=== PATIENT | male | born 1980 | race Caucasian/White ===

== ENCOUNTER 2018-05-14 20:23 | Emergency (ER) | payer MEDICAID ==
[~2018-05-14] VITALS: Ht 177.8 cm; Wt 88.6 kg
[~2018-05-14 20:23] MED LIST: NO HOME MEDS
[2018-05-14] MEDS ORDERED: LIDOcaine 1.5% w/epinephrine 1:200,000 5ml ampul IJ ONE (20:55)
[2018-05-14] MEDS ORDERED: CEPH500C5 PO (21:40)
[2018-05-14] MEDS ORDERED: sulfamethoxazole/trimethoprim DS (800/160mg) tablet PO ONE (21:40)
[2018-05-14] MEDS ORDERED: cephalexin 250mg capsule PO ONE (21:40)
[2018-05-14] MEDS ORDERED: BACDS PO (21:40)
[2018-05-14 22:08] VITALS: BP 120/85
== END 2018-05-14 22:09 | disposition home or self-care (01) ==
LOC: ER 20:24
DX: L03.115 Cellulitis of right lower limb (principal); L02.415 Cutaneous abscess of right lower limb; F17.210 Nicotine dependence, cigarettes, uncomplicated; Z56.0 Unemployment, unspecified
CPT/HCPCS: 10060; 99283; A6266; J3490

== ENCOUNTER 2018-08-27 20:56 | Emergency (ER) | payer MEDICAID ==
[~2018-08-27] VITALS: Ht 177.8 cm; Wt 90.9 kg
[~2018-08-27 20:56] MED LIST changes: +CEPH500C5 PO
[2018-08-27] MEDS ORDERED: SULF1TAB49 PO (21:50)
[2018-08-27] MEDS ORDERED: LIDOcaine 1% w/epiNEPHrine 1:200,000 30ml vial IM ONE (21:50)
[2018-08-27] MEDS ORDERED: acetaminophen 325mg tablet PO ONE (21:50)
[2018-08-27] MEDS ORDERED: IBUP-1984 PO (21:50)
[2018-08-27] MEDS ORDERED: ibuprofen tablet 400 MG TABLET PO ONE (21:50)
[2018-08-27] MEDS ORDERED: CEPH-572 PO (21:50)
[2018-08-27 23:44] VITALS: BP 133/84
== END 2018-08-27 23:45 | disposition home or self-care (01) ==
LOC: ER 20:57
DX: L02.415 Cutaneous abscess of right lower limb (principal); Z79.2 Long term (current) use of antibiotics; Z79.899 Other long term (current) drug therapy; Z56.0 Unemployment, unspecified
CPT/HCPCS: 10061; 99284; J3490

== ENCOUNTER 2018-12-21 06:21 | Emergency (ER) | payer MEDICAID ==
[~2018-12-21] VITALS: Ht 177.8 cm; Wt 90.0 kg
[2018-12-21 06:46] VITALS: BP 127/71
== END 2018-12-21 06:55 | disposition home or self-care (01) ==
LOC: ER 06:22
DX: L98.8 Other specified disorders of the skin and subcutaneous tissue (principal); F19.10 Other psychoactive substance abuse, uncomplicated; F15.90 Other stimulant use, unspecified, uncomplicated; F11.90 Opioid use, unspecified, uncomplicated; F17.200 Nicotine dependence, unspecified, uncomplicated; Z79.899 Other long term (current) drug therapy; Z56.0 Unemployment, unspecified
CPT/HCPCS: 99281

== ENCOUNTER 2019-05-28 00:40 | Emergency (ER) | payer MEDICAID, OTHER ==
[~2019-05-28] VITALS: Ht 177.8 cm; Wt 100.0 kg
[~2019-05-28 00:40] MED LIST changes: -CEPH500C5 PO
[2019-05-28 00:43] VITALS: BP 142/94
[2019-05-28] MEDS ORDERED: SULF1TAB49 PO (01:24)
== END 2019-05-28 01:37 | disposition home or self-care (01) ==
LOC: ER 00:41
DX: L03.116 Cellulitis of left lower limb (principal); L03.115 Cellulitis of right lower limb; L03.317 Cellulitis of buttock; F17.200 Nicotine dependence, unspecified, uncomplicated; F12.90 Cannabis use, unspecified, uncomplicated; F15.90 Other stimulant use, unspecified, uncomplicated; F10.99 Alcohol use, unspecified with unspecified alcohol-induced disorder; Z56.0 Unemployment, unspecified; Z86.14 Personal history of Methicillin resistant Staphylococcus aureus infection; Y90.9 Presence of alcohol in blood, level not specified
CPT/HCPCS: 99283

== ENCOUNTER 2019-09-26 01:56 | Emergency (ER) | payer SELFPAY ==
[~2019-09-26] VITALS: Ht 177.8 cm; Wt 95.5 kg
[2019-09-26] MEDS ORDERED: normal saline 1000ML IV soln IVB ONE ×2 (02:40)
[2019-09-26 03:24] LABS: BASOPHILS % (AUTO) 0.7 % (0-1); EOSINOPHILS # (AUTO) 0.1 X10'3 (0-0.9); EOSINOPHILS % (AUTO) 1.3 % (0-6); HEMATOCRIT 41.9 % (42.0-52.0); HEMOGLOBIN 14.6 g/dl (14.0-17.9); LYMPHOCYTES # (AUTO) 2.8 X10'3 (1.1-4.8); LYMPHOCYTES % (AUTO) 38.5 % (21-51); MEAN CORPUSCULAR HEMOGLOBIN 29.3 PG (27.0-31.0); MEAN CORPUSCULAR HGB CONC 34.7 g/dL (33.0-36.5); MEAN CORPUSCULAR VOLUME 84.2 FL (78-98); MEAN PLATELET VOLUME 8.1 FL (7.4-10.4); MONOCYTES # (AUTO) 0.6 X10'3 (0-0.9); MONOCYTES % (AUTO) 8.4 % (2-12); NEUTROPHILS # (AUTO) 3.7 X10'3 (1.8-7.7); NEUTROPHILS % (AUTO) 51.1 % (42-75); PLATELET COUNT 269 X10'3 (140-440); RED BLOOD COUNT 4.98 X10'6 (4.70-6.10); RED CELL DISTRIBUTION WIDTH 12.5 % (11.5-14.5); WHITE BLOOD COUNT 7.3 X10'3 (4.5-11.0)
[2019-09-26] MEDS ORDERED: ondansetron/PF 4mg/2ml inj IV ONE (03:25)
[2019-09-26 03:43] LABS: ALANINE AMINOTRANSFERASE 40 U/L (12-78); ALBUMIN 3.5 G/DL (3.4-5.0); ALBUMIN/GLOBULIN RATIO 0.9 (1.1-1.5); ALKALINE PHOSPHATASE 156 IU/L (46-116); ANION GAP 3 (8-16); BILIRUBIN,TOTAL 0.5 MG/DL (0.1-1.0); BLOOD UREA NITROGEN 14 MG/DL (7-18); BUN/CREATININE RATIO 12.3 (5.4-32.0); CHLORIDE 101 MMOL/L (99-107); CREATININE 1.14 MG/DL (0.60-1.10); SODIUM 134 MMOL/L (135-145); TOTAL CARBON DIOXIDE 29.6 MMOL/L (24-32); TOTAL PROTEIN 7.4 G/DL (6.4-8.2); eGFR 72 ML/MIN
[2019-09-26 03:44] LABS: ASPARTATE AMINO TRANSFERASE 26 U/L (10-37); POTASSIUM 5.1 MMOL/L (3.5-5.1)
[2019-09-26 03:48] LABS: GLUCOSE 500 MG/DL (70-104)
[2019-09-26] MEDS ORDERED: insulin regular, human U-100 3ml vial - multi-dose IV ONE (04:05)
[2019-09-26] MEDS ORDERED: insulin regular, human 10 units/0.1 ml syringe IV ONE (04:05)
[2019-09-26 04:31] VITALS: BP 130/93
== END 2019-09-26 04:32 | disposition home or self-care (01) ==
LOC: ER 01:56
DX: E11.65 Type 2 diabetes mellitus with hyperglycemia (principal); F12.90 Cannabis use, unspecified, uncomplicated; F15.90 Other stimulant use, unspecified, uncomplicated; F11.90 Opioid use, unspecified, uncomplicated; Z72.89 Other problems related to lifestyle; Z86.14 Personal history of Methicillin resistant Staphylococcus aureus infection; Z56.0 Unemployment, unspecified
CPT/HCPCS: 36415; 80053; 82948; 85025; 96361; 96374; 99283; J7030; J1815

== ENCOUNTER 2020-02-15 20:31 | Emergency (ER) | payer MEDICAID ==
[~2020-02-15] VITALS: Ht 177.8 cm; Wt 90.9 kg
[2020-02-15 20:32] VITALS: BP 128/83
[2020-02-15] MEDS ORDERED: normal saline 1000ML IV soln IVB ONE (21:05)
--- NOTE | 2020-02-15 21:35 | NUR ---
PT RELEASED FROM [facility] CUSTODY AND WANTING TO LEAVE AMA. SONNY FRANCIS AT FOR INITIAL EVAL
[2020-02-15] MEDS ORDERED: METF1000 PO (21:37)
== END 2020-02-15 21:55 | disposition left against medical advice (07) ==
LOC: ER 20:31
DX: E11.65 Type 2 diabetes mellitus with hyperglycemia (principal); R11.10 Vomiting, unspecified; R35.8 Other polyuria; R63.1 Polydipsia; F17.200 Nicotine dependence, unspecified, uncomplicated; F12.90 Cannabis use, unspecified, uncomplicated; F11.90 Opioid use, unspecified, uncomplicated; Z86.14 Personal history of Methicillin resistant Staphylococcus aureus infection; Z56.0 Unemployment, unspecified; Z79.899 Other long term (current) drug therapy
CPT/HCPCS: 82948; 99283

== ENCOUNTER 2020-11-08 01:42 | Emergency (ER) | payer MEDICAID ==
[~2020-11-08] VITALS: Ht 177.8 cm; Wt 80.2 kg
[2020-11-08 01:50] VITALS: BP 112/79
== END 2020-11-08 04:58 | disposition left against medical advice (07) ==
LOC: ER 01:43
DX: R10.31 Right lower quadrant pain (principal); Z53.21 Procedure and treatment not carried out due to patient leaving prior to being seen by health care provider

== ENCOUNTER 2022-06-12 22:28 | Emergency (ER) | payer MEDICAID ==
[~2022-06-12] VITALS: Ht 177.8 cm; Wt 86.4 kg
[2022-06-12 23:09] VITALS: BP 117/79
[2022-06-12 23:56] LABS: BASOPHILS # (AUTO) 0.1 X10'3 (0-0.2); BASOPHILS % (AUTO) 0.9 % (0-1); EOSINOPHILS # (AUTO) 0.1 X10'3 (0-0.9); EOSINOPHILS % (AUTO) 1.7 % (0-6); HEMATOCRIT 39.7 % (42.0-52.0); HEMOGLOBIN 13.5 g/dl (14.0-17.9); LYMPHOCYTES # (AUTO) 2.8 X10'3 (1.1-4.8); LYMPHOCYTES % (AUTO) 40.6 % (21-51); MEAN CORPUSCULAR VOLUME 79.4 FL (78-98); MEAN PLATELET VOLUME 7.2 FL (7.4-10.4); MONOCYTES # (AUTO) 0.7 X10'3 (0-0.9); MONOCYTES % (AUTO) 10.4 % (2-12); NEUTROPHILS # (AUTO) 3.1 X10'3 (1.8-7.7); NEUTROPHILS % (AUTO) 46.4 % (42-75); PLATELET COUNT 265 X10'3 (140-440); RED CELL DISTRIBUTION WIDTH 15.3 % (11.5-14.5); WHITE BLOOD COUNT 6.8 X10'3 (4.5-11.0)
[2022-06-12 23:57] LABS: CLARITY,URINE CLEAR (Clear); COLOR,URINE YELLOW (Yellow); GLUCOSE, URINE 100 mg/dl (Neg); KETONES,URINE TRACE mg/dl (Neg); LEUKOCYTE ESTERASE ,URINE NEGATIVE (Neg); NITRITES, URINE NEGATIVE (Neg); OCCULT BLOOD,URINE NEGATIVE (Neg); PH,URINE 5.5 (4.8-8.0); PROTEIN,URINE NEGATIVE (Neg)
[2022-06-13 00:05] LABS: UA COLLECTION TYPE CLN CATCH MIDSTREAM
[2022-06-13 00:10] LABS: ALANINE AMINOTRANSFERASE 46 U/L (12-78); ALBUMIN 4.1 G/DL (3.4-5.0); ALKALINE PHOSPHATASE 116 IU/L (46-116); ANION GAP 6 (8-16); ASPARTATE AMINO TRANSFERASE 29 U/L (10-37); BILIRUBIN,TOTAL 0.3 MG/DL (0.1-1.0); BLOOD UREA NITROGEN 20 MG/DL (7-18); BUN/CREATININE RATIO 18.9 (5.4-32.0); CALCIUM 9.2 MG/DL (8.5-10.1); CHLORIDE 102 MMOL/L (99-107); CREATININE 1.06 MG/DL (0.60-1.10); GLUCOSE 173 MG/DL (70-104); LIPASE < 50 U/L (73-393); POTASSIUM 4.3 MMOL/L (3.5-5.1); SODIUM 136 MMOL/L (135-145); TOTAL CARBON DIOXIDE 27.8 MMOL/L (24-32); TOTAL PROTEIN 8.2 G/DL (6.4-8.2); eGFR 77 ML/MIN
== END 2022-06-13 03:32 | disposition left against medical advice (07) ==
LOC: ER 22:29
DX: R10.9 Unspecified abdominal pain (principal); Z53.21 Procedure and treatment not carried out due to patient leaving prior to being seen by health care provider
CPT/HCPCS: 36415; 80053; 81003; 83690; 85025

== ENCOUNTER 2023-12-13 22:09 | Emergency (ER) | payer MEDICAID ==
[~2023-12-13] VITALS: Ht 177.8 cm; Wt 86.4 kg
[2023-12-13 22:49] VITALS: BP 128/84; PULSE 87; TEMP 98; O2SAT 99
[2023-12-13] MEDS ORDERED: DOXY-457 PO (23:05)
[2023-12-13 23:23] VITALS: RESP 16
[2023-12-13] MEDS: metFORMIN 500mg tablet PO ONE (23:30)
[2023-12-13] MEDS: CefTRIAXone 1000mg IM Kit (w/lidocaine diluent) IM STA (23:35)
[2023-12-13] MEDS: penicillin G benzathine 1.2 million unit/2ml syringe IM ONE (23:35)
== END 2023-12-13 23:42 ==
LOC: ER 22:09
DX: A49.02 Methicillin resistant Staphylococcus aureus infection, unspecified site (principal); A53.9 Syphilis, unspecified; E11.65 Type 2 diabetes mellitus with hyperglycemia; F12.90 Cannabis use, unspecified, uncomplicated; Z79.2 Long term (current) use of antibiotics
CPT/HCPCS: 82948; 96372; 99284; J0561; J0696

== ENCOUNTER 2023-12-16 21:37 | Emergency (ER) | payer MEDICAID, OTHER ==
[~2023-12-16] VITALS: Ht 177.8 cm; Wt 76.0 kg
[~2023-12-16 21:37] MED LIST changes: +DOXY-457 PO
[2023-12-16 22:25] LABS: MEAN PLATELET VOLUME 8.1 FL (7.4-10.4)
[2023-12-16 22:27] LABS: BASOPHILS % (AUTO) 0.3 % (0-1); EOSINOPHILS % (AUTO) 0 % (0-6); HEMATOCRIT 49.6 % (42.0-52.0); HEMOGLOBIN 17.3 g/dl (14.0-17.9); LYMPHOCYTES % (AUTO) 14.6 % (21-51); MEAN CORPUSCULAR HEMOGLOBIN 28.1 PG (27.0-31.0); MEAN CORPUSCULAR HGB CONC 34.8 g/dL (33.0-36.5); MEAN CORPUSCULAR VOLUME 80.8 FL (78-98); MONOCYTES # (AUTO) 1.3 X10'3 (0-0.9); MONOCYTES % (AUTO) 9.1 % (2-12); NEUTROPHILS # (AUTO) 10.6 X10'3 (1.8-7.7); PLATELET COUNT 344 X10'3 (140-440); RED BLOOD COUNT 6.14 X10'6 (4.70-6.10); RED CELL DISTRIBUTION WIDTH 12.8 % (11.5-14.5)
[2023-12-16] MEDS: normal saline 1000ML IV soln IVB ONE (22:46)
[2023-12-16] MEDS: acetaminophen 1,000mg/100ml IV 100 ML IV ONE (22:58)
[2023-12-16 22:59] LABS: ALANINE AMINOTRANSFERASE 27 U/L (12-78); ALBUMIN 4.2 G/DL (3.4-5.0); ALBUMIN/GLOBULIN RATIO 0.9 (1.1-1.5); ALKALINE PHOSPHATASE 124 IU/L (46-116); ANION GAP 8 (8-16); ASPARTATE AMINO TRANSFERASE 13 U/L (10-37); BLOOD UREA NITROGEN 26 MG/DL (7-18); BUN/CREATININE RATIO 20.5 (10.0-20.0); CALCIUM 10.1 MG/DL (8.5-10.1); CHLORIDE 90 MMOL/L (99-107); CREATININE 1.27 MG/DL (0.60-1.10); SODIUM 130 MMOL/L (135-145); TOTAL CARBON DIOXIDE 32.2 MMOL/L (24-32); TOTAL PROTEIN 8.7 G/DL (6.4-8.2); eCRCL 77 ML/MIN; eGFR 62 ML/MIN
[2023-12-16 23:07] LABS: PRO BRAIN NATRIURETIC PEPTIDE 184 PG/ML (0-125)
[2023-12-16 23:11] LABS: GLUCOSE 448 MG/DL (70-104)
[2023-12-16] MEDS: insulin regular, human 10 units/0.1 ml syringe IV ONE (23:41)
[2023-12-17 00:29] VITALS: BP 126/88; PULSE 93; RESP 18; TEMP 98.2; O2SAT 100
== END 2023-12-17 00:34 | disposition left against medical advice (07) ==
LOC: EEVIPCON 21:38 → ER 21:38
DX: S61.222A Laceration with foreign body of right middle finger without damage to nail, initial encounter (principal); E11.65 Type 2 diabetes mellitus with hyperglycemia; R10.9 Unspecified abdominal pain; F12.90 Cannabis use, unspecified, uncomplicated; F11.90 Opioid use, unspecified, uncomplicated; W26.8XXA Contact with other sharp object(s), not elsewhere classified, initial encounter
CPT/HCPCS: 36415; 71045; 74176; 80053; 82948; 83880; 84145; 84484; 85025; 93005; 96374; 96375; 99285; J0131; J1815; J7030; 96365